=== PATIENT | female | born 2000 | race African-American/Black ===

== ENCOUNTER 2023-10-21 05:22 | Observation (INO) | payer OTHER, SELFPAY ==
[~2023-10-21] VITALS: Ht 170.2 cm; Wt 106.4 kg
[2023-10-21] MEDS ORDERED: BROM118S38 PO (05:33)
[2023-10-21] MEDS ORDERED: ACET-683 PO (05:34)
[2023-10-21] MEDS ORDERED: METOCLOPRAMIDE INJ 10MG/2ML VIAL IV ONE (06:55)
[2023-10-21] MEDS ORDERED: diphenhydrAMINE 50MG/ML VIAL IV ONE (06:55)
[2023-10-21 07:20] LABS: BASO % 0.2 % (0.0-1.0); HEMATOCRIT 42.2 % (36.0-47.0); LYMPH # 1.5 10^3/uL (1.5-5.0); LYMPH % 6.5 % (24.0-44.0); MEAN CORPUSCULAR HEMOGLOBIN 26.3 pg (27.0-33.0); MEAN CORPUSCULAR HGB CONC 33.2 g/dl (32.0-36.5); MEAN CORPUSCULAR VOLUME 79.2 fl (80.0-96.0); MONO % 8.9 % (2.0-8.0); NEUTROPHILS # 18.7 10^3/uL (1.5-8.5); PLATELET COUNT, AUTOMATED 223 10^3/uL (150-450); RED BLOOD COUNT 5.33 10^6/uL (4.00-5.40); WHITE BLOOD COUNT 22.3 10^3/uL (4.0-10.0)
[2023-10-21 08:47] LABS: HCG, SERUM QUALITATIVE NEGATIVE (NEGATIVE)
[2023-10-21] MEDS ORDERED: KETOROLAC 30 MG/ML 1ML VIAL IV ONE (08:55)
[2023-10-21] MEDS ORDERED: ISOVUE-370 76% 100ML VIAL As Ordered ONE (08:55)
[2023-10-21] MEDS ORDERED: AMPICILLIN SOD/SULBACTAM SOD 3 GM in D5W MINI-BAG PLUS 100 ML IV ONE (10:20)
[2023-10-21] MEDS ORDERED: dexAMETHasone 20MG/5ML VIAL IV ONE (10:40)
[2023-10-21] MEDS ORDERED: MED REC IN PROGRESS XX SCH (10:55)
[2023-10-21] MEDS ORDERED: HOME MED LIST COMPLETE! XX SCH (11:30)
[2023-10-21] MEDS: SODIUM CHLORIDE 0.9% 1000ML IV STA ×2 (11:47→12:06)
[2023-10-21 12:35] LABS: ALBUMIN 3.4 G/DL (3.2-5.2); ALKALINE PHOSPHATASE 95 U/L (46-116); ALT/SGPT 12 U/L (7.0-40); AST/SGOT 11 U/L (<34); BILIRUBIN,TOTAL 0.6 MG/DL (0.3-1.2); BLOOD UREA NITROGEN 8 MG/DL (9-23); CARBON DIOXIDE LEVEL 22 MMOL/L (20-31); CHLORIDE LEVEL 104 MMOL/L (98-107); GLOMERULAR FILTRATION RATE > 60.0 (>60); GLUCOSE, FASTING 89 MG/DL (60-100); POTASSIUM SERUM 3.5 MMOL/L (3.5-5.1); SODIUM LEVEL 136 MMOL/L (136-145); TOTAL PROTEIN 7.5 G/DL (5.7-8.2)
[2023-10-21 12:46] LABS: PROCALCITONIN 0.08 ng/ml
[2023-10-21] MEDS ORDERED: ACETAMINOPHEN 325MG/10.15ML UDC PO PRN (13:15)
[2023-10-21] MEDS ORDERED: CEPACOL LOZENGE PO PRN (15:00)
[2023-10-21] MEDS: KETOROLAC 30 MG/ML 1ML VIAL IV SCH ×2 (15:01→21:22)
[2023-10-21 16:15] VITALS: BP 130/93; TEMP 98; O2SAT 99
[2023-10-21] MEDS: AMPICILLIN SOD/SULBACTAM SOD 3 GM in D5W MINI-BAG PLUS 100 ML IV SCH ×2 (16:35→23:09)
[2023-10-21 21:48] VITALS: BP 128/91; TEMP 98.1; O2SAT 99
[2023-10-22] MEDS: KETOROLAC 30 MG/ML 1ML VIAL IV SCH ×2 (02:47→10:12)
[2023-10-22] MEDS: AMPICILLIN SOD/SULBACTAM SOD 3 GM in D5W MINI-BAG PLUS 100 ML IV SCH ×4 (04:22→22:38)
[2023-10-22] MEDS ORDERED: ONDANSETRON 4MG 2ML VIAL IV ONE (05:00)
[2023-10-22 06:04] VITALS: BP 143/90; TEMP 97.4; O2SAT 97
[2023-10-22 06:48] LABS: BASO % 0.1 % (0.0-1.0); HEMATOCRIT 37.5 % (36.0-47.0); HEMOGLOBIN 12.7 g/dl (12.0-15.5); LYMPH % 6.5 % (24.0-44.0); MEAN CORPUSCULAR HEMOGLOBIN 26.2 pg (27.0-33.0); MEAN CORPUSCULAR HGB CONC 33.9 g/dl (32.0-36.5); MEAN CORPUSCULAR VOLUME 77.3 fl (80.0-96.0); MONO # 0.5 10^3/uL (0.0-0.8); MONO % 3.3 % (2.0-8.0); NEUTROPHILS # 13.9 10^3/uL (1.5-8.5); NEUTROPHILS % 89.5 % (36.0-66.0); PLATELET COUNT, AUTOMATED 228 10^3/uL (150-450); RED BLOOD COUNT 4.85 10^6/uL (4.00-5.40); WHITE BLOOD COUNT 15.6 10^3/uL (4.0-10.0)
[2023-10-22 07:11] LABS: BLOOD UREA NITROGEN 6 MG/DL (9-23); CALCIUM LEVEL 8.8 MG/DL (8.5-10.1); CARBON DIOXIDE LEVEL 26 MMOL/L (20-31); CHLORIDE LEVEL 107 MMOL/L (98-107); CREATININE FOR GFR 0.52 MG/DL (0.55-1.30); GLOMERULAR FILTRATION RATE > 60.0 (>60); GLUCOSE, FASTING 140 MG/DL (60-100); POTASSIUM SERUM 4.1 MMOL/L (3.5-5.1); SODIUM LEVEL 138 MMOL/L (136-145)
[2023-10-22 07:28] LABS: PROCALCITONIN 0.07 ng/ml
[2023-10-22] MEDS ORDERED: ONDANSETRON 4MG 2ML VIAL IV PRN (09:15)
[2023-10-22] MEDS: MIRALAX *UNIT DOSE* 17GM PACKET PO SCH (12:37)
[2023-10-22 14:00] VITALS: BP 138/81; TEMP 98.1; O2SAT 95
[2023-10-22] MEDS ORDERED: KETOROLAC 30 MG/ML 1ML VIAL IV PRN (16:00)
[2023-10-22 22:06] VITALS: BP 130/68; TEMP 98; O2SAT 97
[2023-10-23] MEDS: AMPICILLIN SOD/SULBACTAM SOD 3 GM in D5W MINI-BAG PLUS 100 ML IV SCH ×4 (05:14→22:45)
[2023-10-23 05:48] VITALS: BP 117/57; TEMP 98; O2SAT 97
[2023-10-23 06:37] LABS: BASO % 0.2 % (0.0-1.0); HEMATOCRIT 38.7 % (36.0-47.0); HEMOGLOBIN 13.1 g/dl (12.0-15.5); LYMPH # 1.7 10^3/uL (1.5-5.0); LYMPH % 8.6 % (24.0-44.0); MEAN CORPUSCULAR HEMOGLOBIN 26.1 pg (27.0-33.0); MEAN CORPUSCULAR HGB CONC 33.9 g/dl (32.0-36.5); MEAN CORPUSCULAR VOLUME 77.2 fl (80.0-96.0); MONO # 0.7 10^3/uL (0.0-0.8); MONO % 3.7 % (2.0-8.0); NEUTROPHILS # 16.9 10^3/uL (1.5-8.5); NEUTROPHILS % 86.9 % (36.0-66.0); PLATELET COUNT, AUTOMATED 273 10^3/uL (150-450); RED BLOOD COUNT 5.01 10^6/uL (4.00-5.40); WHITE BLOOD COUNT 19.5 10^3/uL (4.0-10.0)
[2023-10-23 07:05] LABS: BLOOD UREA NITROGEN 10 MG/DL (9-23); CALCIUM LEVEL 9.1 MG/DL (8.5-10.1); CARBON DIOXIDE LEVEL 28 MMOL/L (20-31); CHLORIDE LEVEL 108 MMOL/L (98-107); CREATININE FOR GFR 0.68 MG/DL (0.55-1.30); GLOMERULAR FILTRATION RATE > 60.0 (>60); GLUCOSE, FASTING 135 MG/DL (60-100); POTASSIUM SERUM 4.1 MMOL/L (3.5-5.1); SODIUM LEVEL 142 MMOL/L (136-145)
[2023-10-23] MEDS: MIRALAX *UNIT DOSE* 17GM PACKET PO SCH (09:00)
[2023-10-23] MEDS ORDERED: ISOVUE-370 76% 100ML VIAL As Ordered ONE (10:22)
[2023-10-23 17:00] VITALS: BP 143/87; TEMP 98.2; O2SAT 100
[2023-10-23 22:00] VITALS: BP 170/89; TEMP 97.4; O2SAT 100
[2023-10-24] MEDS: AMPICILLIN SOD/SULBACTAM SOD 3 GM in D5W MINI-BAG PLUS 100 ML IV SCH (04:31)
[2023-10-24 06:00] VITALS: BP 171/87; TEMP 98.4; O2SAT 100
[2023-10-24 07:39] LABS: HEMATOCRIT 39.4 % (36.0-47.0); HEMOGLOBIN 13.3 g/dl (12.0-15.5); MEAN CORPUSCULAR HEMOGLOBIN 26.2 pg (27.0-33.0); MEAN CORPUSCULAR HGB CONC 33.8 g/dl (32.0-36.5); MEAN CORPUSCULAR VOLUME 77.7 fl (80.0-96.0); PLATELET COUNT, AUTOMATED 275 10^3/uL (150-450); RED BLOOD COUNT 5.07 10^6/uL (4.00-5.40); WHITE BLOOD COUNT 17.5 10^3/uL (4.0-10.0)
[2023-10-24 08:09] LABS: BLOOD UREA NITROGEN 12 MG/DL (9-23); CALCIUM LEVEL 8.5 MG/DL (8.5-10.1); CARBON DIOXIDE LEVEL 28 MMOL/L (20-31); CHLORIDE LEVEL 109 MMOL/L (98-107); CREATININE FOR GFR 0.73 MG/DL (0.55-1.30); GLOMERULAR FILTRATION RATE > 60.0 (>60); GLUCOSE, FASTING 108 MG/DL (60-100); POTASSIUM SERUM 4.2 MMOL/L (3.5-5.1); SODIUM LEVEL 141 MMOL/L (136-145)
[2023-10-24 08:20] LABS: ATYPICAL LYMPH 16 % (0-5); LYMPHOCYTES 3 % (16-44); MONOCYTES 8 % (0-5); NEUTROPHILS 73 % (28-66); PLATELET ESTIMATE NORMAL (NORMAL)
[2023-10-24 08:21] LABS: TOXIC GRANULATION 1+; TOXIC VACUOLATION 1+
[2023-10-24] MEDS ORDERED: AUGMENTIN 875 MG TAB PO STA (08:51)
[2023-10-24] MEDS ORDERED: AMOX875T2 PO (08:59)
[2023-10-24] MEDS ORDERED: POLYSPORIN TOPICAL OINTMENT 15GM TOP STA (11:50)
== END 2023-10-24 12:20 | disposition home or self-care (01) ==
LOC: M ED 05:22 → M ED INP 11:47 → INTOOBSV 11:47 → ENRESERV 15:23 → M MS5PR 16:05 → M PED 10-23 16:51
PROVIDERS: ADMIT Internal Medicine; ATTEND Internal Medicine
DX: A40.8 Other streptococcal sepsis (principal); J03.00 Acute streptococcal tonsillitis, unspecified; B95.4 Other streptococcus as the cause of diseases classified elsewhere; R71.8 Other abnormality of red blood cells; R07.89 Other chest pain; E66.9 Obesity, unspecified; D72.829 Elevated white blood cell count, unspecified; Z79.899 Other long term (current) drug therapy
CPT/HCPCS: 36415; 70491; 80047; 80048; 80053; 83605; 84145; 84703; 85025; 86140; 87040; 87486; 87581; 87633; 87798; 92610; 93005; 96365; 96375; 96376; 99284; J0295; J1100; J1200; J1885; J2405; J2765; Q9967